=== PATIENT | male | born 1960 | race African-American/Black ===

== ENCOUNTER 2020-05-12 22:16 | Emergency (ER) | payer BC ==
[~2020-05-12] VITALS: Ht 185.4 cm; Wt 85.7 kg
[2020-05-12 22:50] VITALS: BP 153/95
--- NOTE | 2020-05-12 23:35 | Emergency Room Report ---
History of Present Illness General Chief Complaint: Laceration Source: Patient Present Illness HPI 60-year-old -[place] male with no prior medical history presents with left forehead laceration x obtained prior to arrival. Patient states that he was in a hurry to leave work and turned around and bumped into a shelf whose metal edge caused a forehead laceration. He denies any loss of consciousness, n yessica pain, visual blurring, vision changes, tinnitus, difficulty walking, back pain, chest pain, abdominal pain, shortness of breath, nausea, vomiting, diarrhea or any other symptoms. Tdap status is unknown. Minimal blood loss on scene. Patient is not on blood thinners The patient's symptoms were gradual onset, severity was moderate, duration since 1 hour. Quality: Aching Past medical history: Denies Past surgical history: Denies Smoking: Denies Alcohol use: Denies Drug use: Denies Review of systems: CONST: No fevers or chills, No night sweats PULMONARY: No productive cough, No shortness of breath CARDIAC: No chest pain, No palpitations GI: No vomiting, No diarrhea , No melena_or_BRBPR : No dysuria, No hematuria, No discharge NEURO: No new_focal_weakness_or_numbness, No confusion, No vision changes 14 point Review of Systems is otherwise negative except per HPI Physical Exam: GENERAL: Awake_alert_ nontoxic, no acute distress Spo2 95% on RA -normal EYES: Extraocular muscles are intact. Conjunctivae clear. Lids without swelling ENT: External nose and ear normal_in_appearance. Oropharynx clear. Head_atraumatic, Moist_oral_mucosa NECK: No JVD. No meningismus. No thyromegaly. Supple. Trachea midline RESP: Normal respiratory effort. Symmetric rise. No stridor. Clear_to_auscultation_No_rales_No_wheezes CARDIAC: Regular rate and regular rhytm. No_significant pedal edema. ABDOMEN: Soft. Nondistended. Nontender_No_rebound_or_guarding. MSK: Normal muscle tone, without rigidity. Extremities without asymmetric deformity or swelling. SKIN: Complex stellate left forehead laceration 6 cm. No exposed tendon or bone. No arterial bleeding. Warm and dry. No visible cyanosis or pallor NEUROLOGIC: Alert, oriented x3. Motor_and_sensation_grossly_intact. No truncal ataxia. Gait_normal Psych: Normal mood and affect, normal judgment and insight - COORDINATION OF CARE Case was discussed with: Patient PROCEDURE NOTE Laceration Repair by me: Anesthesia: 1% lidocaine locally Location: L forehead Tendon/Joint/Nerves: No injury Foreign body: None detected after copious irrigation and exploration Technique: Simple Interrupted Sutures x 7. No buried sutures. Complexity: No subcutaneous sutures/mucosal repair/edge excision Post Closure Length: 6 cm Wound is hemostastic No evidence of compartment syndrome, neurologic injury, vascular injury, open joint, tendon laceration, or foreign body. Medical Decision Making/Plan: Differential diagnosis abrasion versus laceration versus contusion/closed head injury, doubt intracranial hemorrhage Patient is afebrile and well-appearing. He is neurologically intact. He is noted to have a complex stellate left forehead laceration near his eyebrow. There is no trauma involving the globe of the eyeball. Visual acuity is grossly intact. Tdap was updated. Wound was copiously irrigated and no foreign body was identified. No arterial bleeding visualized. Laceration was repaired with simple interrupted sutures x7 with adequate hemostasis. [place] head CT is negative. No indication for CT head The patient is non-toxic, well appearing and significantly improved with observation and serial exams in the emergency department. The patient is neurologically intact and able to ambulate, no evidence of spinal cord injury. Patient is stable for discharge home and follow up with their regular doctor in 1-2 days FOR WOUND CHECK. Patient was advised to return to the emergency department to remove sutures in 7 to 10 days Allergies: Coded Allergies: No Known Allergies (Unverified , 05/12/20) COVID-19 Screening Contact w/high risk pt: No Experienced COVID-19 symptoms?: No COVID-19 Testing performed OILER BANDER: No Physical Exam Vital Signs Date Time Temp Pulse Resp B/P (MAP) Pulse Ox O2 Delivery O2 Flow Rate FiO2 05/12/20 22:46 70 20 153/95 (114) 98 Room Air Sp02 EP Interpretation: reviewed, normal Medical Decision Making Diagnostic Impression: Primary Impression: Laceration Last Vital Signs Date Time Temp Pulse Resp B/P (MAP) Pulse Ox O2 Delivery O2 Flow Rate FiO2 05/12/20 22:50 20 153/95 98 Room Air 05/12/20 22:46 70 Disposition: HOME, SELF-CARE Admit Decision Time: 23:35 Condition: Stable Referrals: Patrick Lay MD (PCP) Patient Instructions: Laceration Care, Adult, Facial Laceration Additional Instructions: Instructions for patient/chauffeur: Follow up with your physician in 2 days for wound check to evaluate for inf ection. Return to your primary doctor or ED for suture removal in 7 to 10 days. Follow-up with your doctor sooner if your condition requires a more timely clinical reevaluation. Return to the emergency department immediately if you feel that your condition is worsening or if you have any new or concerning symptoms. Review your discharge instructions and take any prescriptions given as instructed. [facility] PROVIDES FREE OR LOW-COST HEALTH SERVICES TO PEOPLE WHO CAN SHOW PROOF THAT THEY LIVE IN [facility]. TO FIND MORE CLINICS PARTNERED WITH [facility] TO PROVIDE SERVICE, PLEASE CALL . Vika Beavers D.O. May 12, 2020 23:35
[2020-05-12] MEDS ORDERED: Tetanus/Diptheria/Pertussis IM ONE (23:45)
[2020-05-12 23:50] VITALS: BP 140/84
== END 2020-05-12 23:50 | disposition home or self-care (01) ==
LOC: EMR 23:10
DX: S01.81XA Laceration without foreign body of other part of head, initial encounter (principal); W22.8XXA Striking against or struck by other objects, initial encounter; Y93.89 Activity, other specified; Y92.9 Unspecified place or not applicable
CPT/HCPCS: 90471; 90715; 99282